=== PATIENT | female | born 1980 | race Caucasian/White ===

== ENCOUNTER 2017-03-24 09:44 | Emergency (ER) | payer OTHER ==
--- NOTE | ~2017-03-24 | CR253 ---
[facility] A Service of [facility] RADIOLOGY TEXT RESULTS PATIENT: SHARATH LUCERO LOCATION: [facility] : 82 UNIT #: [id number] AGE: [address]: Alex Stewart MD SEX: F ORDER DR: [id number] [facility]. [place], [place] [address] [id number] E MR#: [id number] Acc #: [id number] NAME: SHARATH LUCERO : 1980 SEX: F STUDY DATE/TIME: 03/24/2017 11:43 UNIT: [facility] ROOM: STUDY DESCRIPTION: CR Tibia and Fibula 2 Views Rt Attending Physician: Alex Stewart M.D. Ordering Physician: Alex Stewart M.D. Primary Care Physician: Primary Care Physician No MEDICAL IMAGING REPORT This report is preliminary unless electronic signature is present EXAM Right tibia-fibula, 2 views INDICATIONS Leg abscess for 3 days. No comparisons. FINDINGS There is no fracture. No malalignment. There is no evidence of any periosteal reaction. There is a rounded area with some peripheral mineralization in the soft tissues adjacent to the mid tibia, located medially to the mid tibia. This may represent the patient's abscess. There is no clear involvement with the underlying bone. If there is concern for osteomyelitis, MRI would be helpful. IMPRESSION No definite osseous abnormality. There is some indeterminate, rounded mineralization in the soft tissues medial to the tibia, without obvious underlying involvement of the tibia. This may represent the abscess noted in the clinical history. If there is concern for osteomyelitis, further evaluation with MRI may be helpful. Dictated by... Jonas Guerrero M.D. THIS IS AN ELECTRONICALLY VERIFIED REPORT Jonas Guerrero M.D. at 03/25/2017 2:21 PM ARS/eboni TD: 03/25/2017 00:55 JOB #: [id number] MEDICAL IMAGING REPORT [facility] A Service of [facility] RADIOLOGY TEXT RESULTS PATIENT: SHARATH LUCERO LOCATION: [facility] : 82 UNIT #: [id number] AGE: [address]: Alex Stewart MD SEX: F ORDER DR: Page 1 of 1 COPY
[~2017-03-24 09:44] MED LIST: BACTRIM DS TABL1 TA1 PO; CIPRO PO; LORTAB 5/500 TA1 TA1 PO; NO MEDICATIONS; PYRIDIUM PO; VICODIN 5/1 TAB 5/50 PO
[2017-03-24] MEDS ORDERED: NO MEDICATIONS (10:06)
[2017-03-24 10:33] LABS: BASOPHIL# 0.1 X10e3 (0-0.3); BASOPHIL% 0.7 % (0-2.5); EOSINOPHIL# 0.1 X10e3 (0-0.7); HEMATOCRIT 37.8 % (35.0-45.0); HEMOGLOBIN 12.4 gm/dL (12.0-16.0); LYMPHOCYTE# 2.2 X10e3 (1.0-3.5); LYMPHOCYTE% 15.5 % (17.0-45.0); MEAN CELL VOLUME 91.3 FL (83-96); MEAN CORPUSCULAR HEMOGLOBIN 29.9 PG (28-34); MEAN CORPUSCULAR HGB CONC 32.8 g/dL (30-36); MEAN PLATELET VOLUME 7.4 FL (6.5-11.5); MONOCYTE# 1.6 X10e3 (0-1.0); MONOCYTE% 10.9 % (3.0-12.0); NEUTROPHIL# 10.2 X10e3 (1.5-7.1); NEUTROPHIL% 71.9 % (40-75); PLATELET COUNT 257 X10e3 (140-420); RED BLOOD COUNT 4.14 X10e (3.90-5.30); RED CELL DISTRIBUTION WIDTH 13.1 % (11.0-15.5); WHITE BLOOD COUNT 14.2 X10e3 (4.0-10.5)
[2017-03-24 10:34] LABS: DIFF IND NO
[2017-03-24 10:54] LABS: PARTIAL THROMBOPLASTIN TIME 34.5 SECONDS (23.5-31.3); PROTHROMBIN TIME (PATIENT) 10.7 SECONDS (9.6-11.5)
[2017-03-24 11:04] LABS: ALBUMIN SERUM 3.3 g/dL (3.5-5.0); BILIRUBIN, DIRECT 0.2 mg/dL (0.0-0.2); BILIRUBIN,INDIRECT 0.6 mg/dL (0.0-0.9); BILIRUBIN,TOTAL 0.8 mg/dL (0.2-2.0); CALCIUM SERUM 8.7 mg/dL (8.4-10.2); CREATININE SERUM 0.6 mg/dL (0.6-1.4); GLOM FILT RATE Estimated 117.3 mL/min (>60); POTASSIUM 3.8 mmol/L (3.5-5.1); PROTEIN TOTAL SERUM 6.9 g/dL (6.0-8.3)
[2017-03-24 12:39] LABS: AMPHETAMINE NEG (NEG); BARBITURATES NEG (NEG); BENZODIAZEPINES NEG (NEG); COCAINE NEG (NEG); MARIJUANA POS (NEG); OPIATES POS (NEG); TRICYCLIC ANTIDEPRESSANTS POS (NEG); U METHADONE NEG (NEG)
[2017-03-24 13:20] LABS: URINE SOURCE CLEAN CATCH
[2017-03-24 13:35] LABS: URINE APPEARANCE CLEAR; URINE BILIRUBIN NEG (NEG); URINE BLOOD TRACE (NEG); URINE COLOR YELLOW; URINE GLUCOSE NEG (NEG); URINE KETONE NEG (NEG); URINE LEUKOCYTE ESTERASE 3+ (NEG); URINE NITRATE NEG (NEG); URINE PROTEIN NEG (NEG); URINE SPECIFIC GRAVITY 1.005 (1.003-1.035); URINE UROBILINOGEN 0.2 MG/DL (NEG)
[2017-03-24 13:37] LABS: CULTURE INDICATED? YES; URBCS1 AUWI 0-2 /[HPF] (0-2); URINE BACTERIA AUWI 2+ (NEGATIVE); URINE SQUAMOUS EPITHELIAL CELL NONE SEEN /[HPF]; UWBCS1 AUWI 100-200 (0-5)
== END 2017-03-24 13:18 | disposition home or self-care (01) ==
LOC: CED 09:44
PROVIDERS: Emergency Medicine
DX: E11.9 Type 2 diabetes mellitus without complications (principal); L03.115 Cellulitis of right lower limb; L02.415 Cutaneous abscess of right lower limb; Z86.19 Personal history of other infectious and parasitic diseases; F17.200 Nicotine dependence, unspecified, uncomplicated; Z88.8 Allergy status to other drugs, medicaments and biological substances; Z88.2 Allergy status to sulfonamides
CPT/HCPCS: 36415; 73590; 80048; 80076; 80307; 81003; 82550; 83605; 84703; 85025; 85610; 85730; 87086; 96365; 96375; 99284; J1885

== ENCOUNTER 2017-03-31 17:02 | Emergency (ER) | payer OTHER | END 2017-03-31 22:15 | disposition home or self-care (01) | LOC: CED 17:02 | DX: Z48.01 Encounter for change or removal of surgical wound dressing (principal); F17.200 Nicotine dependence, unspecified, uncomplicated; Z88.8 Allergy status to other drugs, medicaments and biological substances; Z88.1 Allergy status to other antibiotic agents; Z88.2 Allergy status to sulfonamides | CPT/HCPCS: 96372; 99283; J1885 ==